=== PATIENT | male | born 1995 | race American Indian/Alaskan Native ===

== ENCOUNTER 2018-05-03 04:45 | Emergency (ER) | payer SELFPAY ==
--- NOTE | 2018-05-03 04:17 | EDM.PDOC ---
ED HPI GENERAL MEDICAL PROBLEM - General Chief Complaint: Behavioral/Psych Stated Complaint: AMBULANCE-ANXIETY Time Seen by Provider: 05/03/18 03:50 Source of Information: Reports: Patient, EMS, Family History Limitations: Reports: Altered Mental Status - History of Present Illness INITIAL COMMENTS - FREE TEXT/NARRATIVE: ED coy S: states ambulance called by grandmother because she thought he was hallucinating, states he knows people are talking about him and [place] Stated there was some one that jumped out of the other side of the ambulance and got in car with other people. 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 No cars following ambulance. Admits at least 1/2 gallon of whiskey daily. Last drink this am, admits marijuana use but none for a couple of days. Denies drug use, Stated he is having DT's because he blew a zero. family confirm he has been drinking heavily daily since at least beginning of month, No injuries. - Related Data Allergies Allergy/AdvReac Type Severity Reaction Status Date / Time No Known Allergies Allergy Verified 05/07/14 20:16 Home Meds: Home Meds . [No Known Home Meds] 05/07/14 [History] Past Medical History - Past Health History Medical/Surgical History: Denies Medical/Surgical History Psychiatric History: Reports: Addiction, Anxiety, Depression Social & Family History - Family History Family Medical History: Noncontributory - Tobacco Use Smoking Status *Q: Current Every Day Smoker Years of Tobacco use: 10 Packs/Tins Daily: 1 - Alcohol Use Days Per Week of Alcohol Use: 7 Number of Drinks Per Day: 24 Total Drinks Per Week: 168 - Recreational Drug Use Recreational Drug Use: Yes Recreational Drug Type: Reports: Marijuana/Hashish Recreational Drug Use Frequency: Binges - Living Situation & Occupation Living situation: Reports: Single ED ROS GENERAL - Review of Systems Review Of Systems: ROS reveals no pertinent complaints other than HPI. - Physical Exam Exam: See Below Exam Limited By: No Limitations General Appearance: Alert, Anxious, Other (easily agitated remains cooperative, short attention. ) Eye Exam: Bilateral Eye: EOMI, PERRL (6) Ears: Normal External Exam Nose: Normal Inspection Throat/Mouth: Normal Inspection Head Exam: Atraumatic Neck: Normal Inspection, Full Range of Motion Respiratory/Chest: No Respiratory Distress, Lungs Clear, Normal Breath Sounds Cardiovascular: Normal Peripheral Pulses, Regular Rate, Rhythm, Tachycardia GI/Abdominal: Normal Bowel Sounds, Soft Neuro Exam (Abbreviated): Alert, Oriented (person), Normal Gait, Normal Reflexes (hyper), Inattentive Back Exam: Normal Inspection Extremities: Normal Inspection Psychiatric: Anxious, Other (paranoid, visual auditory hallucinations, cooperative. some calmer with sister in room) Skin Exam: Warm, Dry, Intact, Normal Color, Diaphoretic Course - Vital Signs Last Recorded V/S: Last Vital Signs Temp 99.0 F 05/03/18 05:46 Pulse 109 H 05/03/18 05:46 Resp 18 05/03/18 05:46 BP 114/72 05/03/18 05:46 Pulse Ox 99 05/03/18 05:46 - Orders/Labs/Meds Labs: Laboratory Tests 05/03/18 05/03/18 05/03/18 Range/Units 04:08 04:08 04:12 WBC 6.9 (5.0-10.0) 10^3/uL RBC 4.59 L (4.6-6.2) 10^6/uL Hgb 14.8 (14.0-18.0) g/dL Hct 42.9 (40.0-54.0) % MCV 93.5 (80-100) fL MCH 32.2 (27.0-34.0) pg MCHC 34.5 (33.0-35.0) g/dL Plt Count 161 (150-450) 10^3/uL Neut % (Auto) 73.9 (42.2-75.2) % Lymph % (Auto) 11.8 L (20.5-50.1) % Rogers % (Auto) 13.9 H (2-8) % Eos % (Auto) 0.3 L (1.0-3.0) % Baso % (Auto) 0.1 (0.0-1.0) % Sodium (135-145) mmol/L Potassium (3.6-5.0) mmol/L Chloride (101-111) mmol/L Carbon Dioxide (21.0-31.0) mmol/L Anion Gap BUN (7-18) mg/dL Creatinine (0.6-1.3) mg/dL Est Cr Clr Drug Dosing mL/min Estimated GFR (MDRD) BUN/Creatinine Ratio Glucose (74-105) mg/dL Calcium (8.4-10.2) mg/dl Total Bilirubin (0.2-1.0) mg/dL AST (10-42) IU/L ALT (10-60) IU/L Alkaline Phosphatase (42-121) IU/L Total Protein (6.7-8.2) g/dl Albumin (3.2-5.5) g/dl Globulin Albumin/Globulin Ratio Urine Color Yellow (YELLOW) Urine Appearance Clear (CLEAR) Urine pH 6.0 (5.0-9.0) Ur Specific Teller 1.010 (1.005-1.030) Urine Protein Negative (NEGATIVE) Urine Glucose (UA) Negative (NEGATIVE) Urine Ketones 80 H (NEGATIVE) Urine Occult Blood Negative (NEGATIVE) Urine Nitrite Negative (NEGATIVE) Urine Bilirubin Negative (NEGATIVE) Urine Urobilinogen 0.2 (0.2-1.0) mg/dL Ur Leukocyte Esterase Negative (NEGATIVE) Urine RBC 0-5 /HPF Urine WBC 0-5 (0-5/HPF) /HPF Ur Epithelial Cells Few /HPF Urine Bacteria Few (0-FEW/HPF) /HPF Urine Mucus Moderate H /LPF Urine Opiates Screen Negative (NEGATIVE) Ur Oxycodone Screen Negative (NEGATIVE) Urine Methadone Screen Negative (NEGATIVE) Ur Barbiturates Screen Negative (NEGATIVE) U Tricyclic Antidepress Negative (NEGATIVE) Ur Phencyclidine Scrn Negative (NEGATIVE) Ur Amphetamine Screen Negative (NEGATIVE) U Methamphetamines Scrn Negative (NEGATIVE) Urine MDMA Screen Negative (NEGATIVE) U Benzodiazepines Scrn Negative (NEGATIVE) Urine Cocaine Screen Negative (NEGATIVE) U Marijuana (THC) Screen Positive H (NEGATIVE) Ethyl Alcohol mg/dL 05/03/18 Range/Units 04:12 WBC (5.0-10.0) 10^3/uL RBC (4.6-6.2) 10^6/uL Hgb (14.0-18.0) g/dL Hct (40.0-54.0) % MCV (80-100) fL MCH (27.0-34.0) pg MCHC (33.0-35.0) g/dL Plt Count (150-450) 10^3/uL Neut % (Auto) (42.2-75.2) % Lymph % (Auto) (20.5-50.1) % Rogers % (Auto) (2-8) % Eos % (Auto) (1.0-3.0) % Baso % (Auto) (0.0-1.0) % Sodium 135 (135-145) mmol/L Potassium 3.2 L (3.6-5.0) mmol/L Chloride 99 L (101-111) mmol/L Carbon Dioxide 24.0 (21.0-31.0) mmol/L Anion Gap 15.2 BUN 11 (7-18) mg/dL Creatinine 0.6 (0.6-1.3) mg/dL Est Cr Clr Drug Dosing 163.72 mL/min Estimated GFR (MDRD) > 60 BUN/Creatinine Ratio 18.33 Glucose 102 (74-105) mg/dL Calcium 9.6 (8.4-10.2) mg/dl Total Bilirubin 1.1 H (0.2-1.0) mg/dL AST 195 H (10-42) IU/L ALT 159 H (10-60) IU/L Alkaline Phosphatase 74 (42-121) IU/L Total Protein 8.6 H (6.7-8.2) g/dl Albumin 5.0 (3.2-5.5) g/dl Globulin 3.6 Albumin/Globulin Ratio 1.39 Urine Color (YELLOW) Urine Appearance (CLEAR) Urine pH (5.0-9.0) Ur Specific Teller (1.005-1.030) Urine Protein (NEGATIVE) Urine Glucose (UA) (NEGATIVE) Urine Ketones (NEGATIVE) Urine Occult Blood (NEGATIVE) Urine Nitrite (NEGATIVE) Urine Bilirubin (NEGATIVE) Urine Urobilinogen (0.2-1.0) mg/dL Ur Leukocyte Esterase (NEGATIVE) Urine RBC /HPF Urine WBC (0-5/HPF) /HPF Ur Epithelial Cells /HPF Urine Bacteria (0-FEW/HPF) /HPF Urine Mucus /LPF Urine Opiates Screen (NEGATIVE) Ur Oxycodone Screen (NEGATIVE) Urine Methadone Screen (NEGATIVE) Ur Barbiturates Screen (NEGATIVE) U Tricyclic Antidepress (NEGATIVE) Ur Phencyclidine Scrn (NEGATIVE) Ur Amphetamine Screen (NEGATIVE) U Methamphetamines Scrn (NEGATIVE) Urine MDMA Screen (NEGATIVE) U Benzodiazepines Scrn (NEGATIVE) Urine Cocaine Screen (NEGATIVE) U Marijuana (THC) Screen (NEGATIVE) Ethyl Alcohol < 5 mg/dL Meds: Medications Discontinued Medications Generic Name Dose Route Start Last Admin Trade Name Elias PRN Reason Stop Dose Admin Multivitamins/Minerals 10 ml/ 1,011.2 mls @ 999 mls/hr 05/03/18 04:08 04:31 Folic Acid 1 mg/ Thiamine HCl IV 05/03/18 05:08 999 mls/hr 100 mg/ Lactated Ringer's ONETIME ONE Administration Multivitamins/Minerals 10 ml/ 1,011 mls @ 999 mls/hr 05/03/18 04:34 05/03/18 04:31 Thiamine HCl 100 mg/ Lactated IV 05/03/18 05:08 999 mls/hr Ringer's ONETIME ONE Administration Sodium Chloride 1,000 mls @ 150 mls/hr 05/03/18 05:50 05/03/18 05:58 Normal Saline IV 05/03/18 12:29 150 mls/hr .BOLUS ONE Administration Lorazepam 2 mg 05/03/18 04:07 05/03/18 04:39 Ativan IVPUSH 05/03/18 04:08 Not Given ONETIME ONE Lorazepam 1 mg 05/03/18 04:11 05/03/18 04:21 Ativan IVPUSH 05/03/18 04:12 1 mg ONETIME ONE Administration Lorazepam 1 mg 05/03/18 04:46 05/03/18 04:54 Ativan IVPUSH 05/03/18 04:47 1 mg ONETIME ONE Administration Thiamine HCl Confirm 05/03/18 04:24 05/03/18 04:33 Vitamin B-1 Administered 05/03/18 04:25 Not Given Dose 200 mg .ROUTE .STK-MED ONE - Re-Assessments/Exams Free Text/Narrative Re-Assessment/Exam: 05/03/18 05:47 Initial CIWA 30, improved with 2mg Ativan 24. TC consult Dr. Huber ROGER hospitalist, Recommend higher care. Dr. Tonya Anglin accepting of patient for further management Alcohol withdrawal with paranoia, auditory and visual hallucinations Departure - Departure Time of Disposition: 05:49 Disposition: DC/Tfer to Acute Hospital 02 Condition: Good Clinical Impression: Alcohol abuse, Alcohol withdrawal delirium - Discharge Information Referrals: PCP,Unobtain [Primary Care Provider] - Forms: ED Department Discharge
[2018-05-03 04:38] LABS: CHLORIDE,CL 99 mmol/L (101-111); SODIUM,NA 135 mmol/L (135-145)
[~2018-05-03 04:45] MED LIST: LORazepam 2 MG/ML Syringe IVPUSH ONE; MVI, Adult with Vitamin K 10 ML, Folic Acid 1 MG, Thiamine 100 MG in Lactated Ringers 1... IV ONE; MVI, Adult with Vitamin K 10 ML, Thiamine 100 MG in Lactated Ringers 1,000 ML IV ONE; Thiamine 200 MG/2 ML MDV ONE
[2018-05-03] MEDS ORDERED: LORazepam 2 MG/ML Syringe IVPUSH ONE (04:46)
[2018-05-03] MEDS ORDERED: Sodium Chloride 0.9% 1,000 ML IV ONE (05:50)
== END 2018-05-03 06:23 ==
LOC: DL.ED 04:45
DX: F10.221 Alcohol dependence with intoxication delirium (principal)
CPT/HCPCS: 36415; 80053; 80305; 81001; 85025; 96365; 96367; 96375; 96376; 99283; 99285; G0480; J2060; J3411; J7030; J7120; J3490